=== PATIENT | male | born 1975 | race Caucasian/White ===

== ENCOUNTER 2019-05-26 09:40 | Emergency (ER) | payer MEDICAID ==
[~2019-05-26] VITALS: Ht 185.4 cm; Wt 136.1 kg
--- NOTE | 2019-05-26 10:09 | NUR ---
dr khan at bedside for eval.
[2019-05-26] MEDS ORDERED: HYDROCODONE/APAP 5/325MG TABLET ONE (10:29)
[2019-05-26 10:33] LABS: BASOPHILS % (AUTO) 0.4 % (0.0-2.0); EOSINOPHILS % (AUTO) 0.8 % (0.0-6.0); HEMATOCRIT 33 % (39-51); HEMOGLOBIN 10.6 g/dL (13.5-17.5); LYMPHOCYTES # (AUTO) 0.9 /CMM (0.8-4.8); MEAN CORPUSCULAR HGB CONC 32 g/dl (31.0-36.0); MEAN CORPUSCULAR VOLUME 89 fL (80-96); MONOCYTES # (AUTO) 0.3 /CMM (0.1-1.30); MONOCYTES % (AUTO) 6.6 % (2.0-12.0); NEUTROPHILS # (AUTO) 3.3 /CMM (1.8-8.9); NEUTROPHILS % (AUTO) 72.2 % (43.0-81.0); PLATELET COUNT (AUTO) 165 /CMM (150-450); RED BLOOD CELL COUNT(AUTO) 3.68 MIL/uL (4.5-6.0); WHITE BLOOD COUNT (AUTO) 4.6 K/uL (4.3-11.0)
[2019-05-26 10:40] LABS: CREATININE 0.9 mg/dL (0.6-1.3); POTASSIUM 3.7 mmol/L (3.5-5.1)
[2019-05-26 10:46] LABS: ALBUMIN 3.5 g/dL (3.4-5.0); BILIRUBIN,TOTAL 0.2 mg/dL (0.2-1.0); CALCIUM, SERUM 8.2 mg/dL (8.5-10.1)
[2019-05-26] MEDS ORDERED: HYDROCODONE/APAP 5/325MG TABLET PO ONE (11:00)
[2019-05-26] MEDS ORDERED: IOHEXOL-300 100 ML VIAL IV ONE (11:02)
--- NOTE | 2019-05-26 11:02 | NUR ---
pt to radiology for head, cervical, abdominal ct scan via wheelchair.
[2019-05-26] MEDS ORDERED: CT SWABBABLE VALVE TRANS SET 1 EA INFUS.SET MC ONE (11:03)
[2019-05-26] MEDS ORDERED: IV NS 0.9% 250 ML IV ONE (11:03)
--- NOTE | 2019-05-26 11:47 | NUR ---
still c/o neck and r side abdomen. dr khan aware.
--- NOTE | 2019-05-26 12:35 | NUR ---
pt states he lives w/ friends but nothing permanent. offered homeless referals and tap card for tranportation but declined.
--- NOTE | 2019-05-26 12:39 | NUR ---
Patient discharged to home in stable condition. Written and verbal after care instructions given. Patient verbalizes understanding of instruction.IV removed. Catheter intact and site benign. Pressure and 4x4 applied to site. No bleeding noted.
[2019-05-26 12:47] VITALS: BP 138/77
[2019-09-16] MEDS ORDERED: ONDA4TAB5 PO (12:02)
[2019-09-16] MEDS ORDERED: HYDR-4354 PO (12:02)
[2019-09-16] MEDS ORDERED: CYAN-51 PO (12:02)
[2019-09-16] MEDS ORDERED: RIVA10TA PO (12:02)
[2019-09-16] MEDS ORDERED: RIVA15TA PO (12:02)
[2019-09-16] MEDS ORDERED: AMOX-427 PO (12:02)
== END 2019-05-26 12:48 | disposition home or self-care (01) ==
LOC: ER 09:48
DX: S16.1XXA Strain of muscle, fascia and tendon at neck level, initial encounter (principal); S46.811A Strain of other muscles, fascia and tendons at shoulder and upper arm level, right arm, initial encounter; S30.1XXA Contusion of abdominal wall, initial encounter; I48.91 Unspecified atrial fibrillation; Z98.890 Other specified postprocedural states; Z88.6 Allergy status to analgesic agent; Z60.2 Problems related to living alone; V49.59XA Passenger injured in collision with other motor vehicles in traffic accident, initial encounter; Y93.89 Activity, other specified; Y92.413 State road as the place of occurrence of the external cause; Y99.8 Other external cause status
CPT/HCPCS: 36415; 70450; 71260; 72125; 74177; 80048; 80076; 85025; 85730; 86850; 99285; J7050; Q9967

== ENCOUNTER 2019-09-11 07:41 | Inpatient (IN) | payer MEDICAID ==
[~2019-09-11] VITALS: Ht 185.4 cm; Wt 120.2 kg
--- NOTE | 2019-09-11 07:41 | NUR ---
PT BIBRA 860 FROM HOME C/O ABDOMINAL PAIN STARTED THIS MORNING. PT IS AAOX4, NOT IN RESPIRATORY DISTRESS, V/S STABLE, KEPT RESTED AND COMFORTABLE. WILL CONTINUE TO MONITOR.
[2019-09-11] MEDS ORDERED: IV NS 0.9% 500 ML BAG IV ONE (08:00)
[2019-09-11] MEDS ORDERED: HYDROMORPHONE INJ 2 MG/ML DISP.SYRIN IV ONE (08:00)
[2019-09-11] MEDS ORDERED: ONDANSETRON HCL/PF 4 MG/2 ML VIAL IVP ONE (08:00)
--- NOTE | 2019-09-11 08:00 | NUR ---
SEEN AND EXAMINED BY .
[2019-09-11] MEDS ORDERED: HYDROMORPHONE 1 MG/1 ML DISP.SYRIN ONE ×2 (08:01→10:14)
[2019-09-11] MEDS ORDERED: ONDANSETRON HCL/PF 4 MG/2 ML VIAL ONE (08:01)
--- NOTE | 2019-09-11 08:10 | NUR ---
IV LINE ESTABLISHED BLOOD DRAWN AND SENT TO LAB.
[2019-09-11 08:19] LABS: BASOPHILS % (AUTO) 0.3 % (0.0-2.0); EOSINOPHILS % (AUTO) 0.3 % (0.0-6.0); HEMATOCRIT 32 % (39-51); HEMOGLOBIN 9.9 g/dL (13.5-17.5); LYMPHOCYTES # (AUTO) 1.1 /CMM (0.8-4.8); LYMPHOCYTES % (AUTO) 27.4 % (20.0-44.0); MEAN CORPUSCULAR HGB CONC 31 g/dl (31.0-36.0); MEAN CORPUSCULAR VOLUME 93 fL (80-96); MONOCYTES # (AUTO) 0.4 /CMM (0.1-1.30); MONOCYTES % (AUTO) 8.8 % (2.0-12.0); NEUTROPHILS # (AUTO) 2.6 /CMM (1.8-8.9); NEUTROPHILS % (AUTO) 63.2 % (43.0-81.0); PLATELET COUNT (AUTO) 103 /CMM (150-450); RED BLOOD CELL COUNT(AUTO) 3.48 MIL/uL (4.5-6.0); WHITE BLOOD COUNT (AUTO) 4.2 K/uL (4.3-11.0)
--- NOTE | 2019-09-11 08:30 | NUR ---
PT STATED HE IS NOT ALLERGIC TO DILAUDID AND MORPHINE.
[2019-09-11 09:00] LABS: CALCIUM, SERUM 8.9 mg/dL (8.5-10.1); CARBON DIOXIDE 22 mmol/L (21-32); CHLORIDE 102 mmol/L (98-107); CREATININE 0.9 mg/dL (0.6-1.3); GLUCOSE 93 mg/dL (74-106); POTASSIUM 4.6 mmol/L (3.5-5.1); SODIUM SERUM 137 mmol/L (136-145); UREA NITROGEN, BLOOD 12 mg/dL (7-18)
[2019-09-11 09:06] LABS: ALANINE AMINOTRANSFERASE 30 U/L (12-78); ALBUMIN 3.7 g/dL (3.4-5.0); ALKALINE PHOSPHATASE 86 U/L (46-116); ASPARTATE AMINOTRANSFERASE 42 U/L (15-37); BILIRUBIN,DIRECT 0.1 mg/dL (0.0-0.2); BILIRUBIN,TOTAL 0.5 mg/dL (0.2-1.0); LIPASE 70 U/L (73-393); TOTAL PROTEIN, SERUM 7.6 g/dL (6.4-8.2)
--- NOTE | 2019-09-11 10:08 | NUR ---
CALLED DR. BRET JEAN-BAPTISTE [phone]
--- NOTE | 2019-09-11 10:20 | NUR ---
COVID SWAB OBTAINED AND SENT TO LAB.
[2019-09-11] MEDS ORDERED: HYDROMORPHONE INJ 0.5 MG/0.5 ML SYRINGE IM ONE (10:30)
--- NOTE | 2019-09-11 10:36 | NUR ---
EPIC CALLED AND PAGED.
--- NOTE | 2019-09-11 11:02 | NUR ---
received a call from Lab for covid 19 result "negative", notified.
[2019-09-11] MEDS ORDERED: IV LR 500 ML IV PRN (11:30)
[2019-09-11] MEDS ORDERED: Z GUARD REMEDY 2 OZ OINT TP PRN (11:30)
[2019-09-11] MEDS ORDERED: ACETAMINOPHEN 325 MG TABLET PO PRN (11:30)
[2019-09-11] MEDS ORDERED: ONDANSETRON HCL/PF 4 MG/2 ML VIAL IVP PRN (11:30)
--- NOTE | 2019-09-11 11:38 | NUR ---
CALLED HOUSE SUP FOR MED SURG BED
--- NOTE | 2019-09-11 11:55 | NUR ---
REPORT GIVEN TO FERMIN SAMANIEGO FOR ZHEN.
[2019-09-11 12:05] LABS: APPEARANCE,URINE CLEAR (CLEAR); BILIRUBIN,URINE NEGATIVE (NEGATIVE); BLOOD, URINE NEGATIVE Ery/uL (NEGATIVE); COLOR,URINE YELLOW (YELLOW); KETONES,URINE NEGATIVE (NEGATIVE); LEUKOCYTE ESTERASE ,URINE NEGATIVE (NEGATIVE); NITRITE, URINE NEGATIVE (NEGATIVE); PROTEIN,URINE NEGATIVE (NEGATIVE); UGLUCOSE NEGATIVE (NEGATIVE); UROBILINOGEN,URINE 0.2 EU/dL (0.2)
--- NOTE | 2019-09-11 12:22 | NUR ---
RN ADMITTING NOTE Received report from Grayson CHRISTENSEN. Patient arrived onto unit, A/O x4, ambulated to bed, showing no signs of acute distress or SOB, saturating 100% on RA. BP 133/83 HR 57 T 99.2. Patient is 265 lbs. IV line in the right wrist #20g is clean and intact, flushing well. Skin assessed and skin remains intact. Patient is complaining of deep tenderness abdominal pain starting in LLQ and radiating throughout the abdomen. Bed is in lowest position, side rails x3 in upright position, call light is within reach, fall and safety precautions enforced. Will continue with admitting orders.
[2019-09-11 12:30] VITALS: BP 133/83
[2019-09-11] MEDS: PANTOPRAZOLE 40 MG VIAL IV SCH (13:00)
[2019-09-11] MEDS ORDERED: PIPERACILLIN /TAZOBACTAM 3.375 G in IV D5W 50 ML IV ONE (13:00)
[2019-09-11] MEDS: HYDROMORPHONE INJ 2 MG/ML DISP.SYRIN IV PRN ×3 (13:02→21:34)
[2019-09-11] MEDS ORDERED: TRAZ-257 PO (15:17)
[2019-09-11] MEDS ORDERED: FAMO40TA7 PO (15:17)
[2019-09-11] MEDS ORDERED: QUET50TA PO (15:17)
[2019-09-11] MEDS ORDERED: FLUO40CA8 PO (15:17)
[2019-09-11 16:00] VITALS: BP 117/66
--- NOTE | 2019-09-11 18:46 | NUR ---
RN CLOSING NOTE Patient is resting in bed, A/O x4, showing no sign of acute distress, stable on RA. IV line is clean and intact running LR @ 75mls/hour. Patient is able to ambulate to the bathroom independently. All patient needs met, all due medications given, patient kept clean and dry throughout the shift, fall safety precautions enforced. Will endorse to [facility] shift lead.
[2019-09-11 20:00] VITALS: BP_SYST 112; BP_SYST 142; BP_DIAS 68; BP_DIAS 74
[2019-09-11] MEDS: IV LR 1000 ML 1,000 ML IV PRN (20:20)
[2019-09-11] MEDS: PIPERACILLIN /TAZOBACTAM 3.375 G in IV D5W 100 ML IV SCH (20:21)
--- NOTE | 2019-09-12 00:40 | NUR ---
NGT READJUSTED ngt checked pt c/o feeling like tube is in back of throat. appears tube has slipped 3cm tape removed tube advanced to 68cm and retaped to right nostril .placement confirmed with auscultation tube draining red brown secrectioin small amoun and placed back on lis. Addendum: 09/12/19 at 0106 by MARYBETH RODRIGUEZ RN MESSAGE WRITTEN IN ERROR ENTERED ON WRONG PATIENT. PT HAS NOT NGT
[2019-09-12] MEDS: HYDROMORPHONE INJ 2 MG/ML DISP.SYRIN IV PRN ×7 (01:21→21:35)
[2019-09-12] MEDS: PIPERACILLIN /TAZOBACTAM 3.375 G in IV D5W 100 ML IV SCH ×3 (04:26→19:48)
[2019-09-12] MEDS: IV LR 1000 ML 1,000 ML IV PRN (05:36)
--- NOTE | 2019-09-12 07:30 | NUR ---
RN Opening Note Received patient in bed, AO x 3-4, able to responds all stimuli. C/o abd pain, pt had Dilaudid 1mg q4 prn, skin is warm to touch, clean/dry. Respiratory even and unlabored in room air, no distress observed. Bed in locked with elevated HOB for ensure airway and aspiration precaution. Call light within reach, will continue to monitor.
[2019-09-12 07:51] LABS: BASOPHILS % (AUTO) 0.4 % (0.0-2.0); EOSINOPHILS % (AUTO) 1.2 % (0.0-6.0); HEMATOCRIT 30 % (39-51); HEMOGLOBIN 9.8 g/dL (13.5-17.5); LYMPHOCYTES % (AUTO) 38.4 % (20.0-44.0); MEAN CORPUSCULAR HGB CONC 32 g/dl (31.0-36.0); MEAN CORPUSCULAR VOLUME 89 fL (80-96); MONOCYTES # (AUTO) 0.2 /CMM (0.1-1.30); MONOCYTES % (AUTO) 6.4 % (2.0-12.0); NEUTROPHILS # (AUTO) 1.4 /CMM (1.8-8.9); NEUTROPHILS % (AUTO) 53.6 % (43.0-81.0); PLATELET COUNT (AUTO) 88 /CMM (150-450); RED BLOOD CELL COUNT(AUTO) 3.42 MIL/uL (4.5-6.0); WHITE BLOOD COUNT (AUTO) 2.6 K/uL (4.3-11.0)
[2019-09-12 08:00] VITALS: BP 125/73
[2019-09-12 08:05] LABS: CALCIUM, SERUM 8.9 mg/dL (8.5-10.1); CREATININE 0.9 mg/dL (0.6-1.3); MAGNESIUM 1.9 mg/dL (1.8-2.4); PHOSPHORUS 3.5 mg/dL (2.5-4.9); POTASSIUM 3.8 mmol/L (3.5-5.1)
[2019-09-12] MEDS: PANTOPRAZOLE 40 MG VIAL IV SCH (08:28)
[2019-09-12 08:45] LABS: EOSINOPHILS % (MANUAL) 1 % (0-4); LYMPHOCYTES % (MANUAL) 40 % (16-48); MONOCYTES % (MANUAL) 6 % (0-11.0); NEUTROPHILS % (MANUAL) 53 (42-76)
--- NOTE | 2019-09-12 10:43 | NUR ---
Patient transferred room 203, given alanna Dickinson RN.
--- NOTE | 2019-09-12 10:45 | NUR ---
RN NOTES RECEIVED PATIENT FROM [facility]. REPORT GIVEN BEDSIDE FROM FERMIN GUADALUPE. NO SIGNS OF DISTRESS NOTED AT THIS TIME. A/O X4. ORIENTED TO ROOM, UNIT AND STAFF. SAFETY MEASURES IN PLACE, BED IN LOWEST LOCKED POSITION WITH SIDE RAILS UP X2. CALL LIGHT WITHIN EASY REACH. WILL CONTINUE TO MONITOR.
[2019-09-12 16:00] VITALS: BP 130/69
--- NOTE | 2019-09-12 18:52 | NUR ---
RN NOTES PATIENT IN BED RESTING COMFORTABLY IN MODERATE HIGH BACK REST. A/O X4. ON ROOM AIR, NO SIGNS OF DISTRESS NOTED THROUGHOUT THE SHIFT. IV FLUIDS ON LEFT FA#22 WITH LR RUNNING @75ML/HR, PATENT AND INTACT. SAFETY MEASURES IN PLACE, BED IN LOWEST LOCKED POSITION WITH SIDE RAILS UP X2. CALL LIGHT WITHIN EASY REACH. WILL ENDORSE TO LIBRARY CONSULTANT NURSE FOR ZHEN.
--- NOTE | 2019-09-12 20:17 | NUR ---
RECEIVED MR. KHAN IN BED ALERT AND ORIENTATED X4 SPEECH CLEAR WATCHING TV. WANTS TO KNOW WHEN HE CAN BE MEDIACATED FOR PAIN. LET HIM KNOW IT WAS [id number] NOT TIL 21:30. REQUESTED SOMETHING TO EAT CLEAR LIQ DIET JELLO GIVEN AND CONSUMED 100% NO N/V FOLLOWED
[2019-09-12 20:19] VITALS: BP 127/80
[2019-09-13] MEDS: HYDROMORPHONE INJ 2 MG/ML DISP.SYRIN IV PRN ×6 (01:31→21:25)
[2019-09-13] MEDS: PIPERACILLIN /TAZOBACTAM 3.375 G in IV D5W 100 ML IV SCH ×3 (04:07→19:41)
--- NOTE | 2019-09-13 06:06 | NUR ---
ENDING NOTES: AWAKE MOST OF THE NIGHT WATCHING TV. MEDICATED X3 THRU THE NIGHT q4 HOURS . TOLERATING CLEAR LIQUID NO NAUSEA NO VOMITING
[2019-09-13 06:58] LABS: BASOPHILS % (AUTO) 0.2 % (0.0-2.0); EOSINOPHILS % (AUTO) 1.1 % (0.0-6.0); HEMATOCRIT 31 % (39-51); HEMOGLOBIN 9.9 g/dL (13.5-17.5); LYMPHOCYTES % (AUTO) 34.8 % (20.0-44.0); MEAN CORPUSCULAR HGB CONC 32 g/dl (31.0-36.0); MEAN CORPUSCULAR VOLUME 89 fL (80-96); MONOCYTES # (AUTO) 0.2 /CMM (0.1-1.30); MONOCYTES % (AUTO) 7.9 % (2.0-12.0); NEUTROPHILS # (AUTO) 1.5 /CMM (1.8-8.9); PLATELET COUNT (AUTO) 89 /CMM (150-450); RED BLOOD CELL COUNT(AUTO) 3.47 MIL/uL (4.5-6.0); WHITE BLOOD COUNT (AUTO) 2.7 K/uL (4.3-11.0)
[2019-09-13 07:00] LABS: CALCIUM, SERUM 9.3 mg/dL (8.5-10.1); CREATININE 0.9 mg/dL (0.6-1.3); POTASSIUM 3.9 mmol/L (3.5-5.1)
--- NOTE | 2019-09-13 07:27 | NUR ---
RN NOTES RECEIVED PATIENT IN BED RESTING COMFORTABLY IN MODERATE HIGH BACK REST. A/O X4. ON ROOM AIR, NO SIGNS OF DISTRESS NOTED AT THIS TIME. IV FLUIDS ON LEFT FA#22 WITH LR RUNNING @75ML/HR, PATENT AND INTACT. SAFETY MEASURES IN PLACE, BED IN LOWEST LOCKED POSITION WITH SIDE RAILS UP X2. CALL LIGHT WITHIN EASY REACH. WILL CONTINUE TO MONITOR.
[2019-09-13 08:00] VITALS: BP 124/90
[2019-09-13] MEDS: PANTOPRAZOLE 40 MG VIAL IV SCH (08:24)
[2019-09-13] MEDS: IV LR 1000 ML 1,000 ML IV PRN (08:59)
[2019-09-13] MEDS: FLUOXETINE HCL 20 MG CAPSULE PO SCH (12:40)
[2019-09-13 13:11] LABS: BAND % (MANUAL) 2 % (0.0-5.0); EOSINOPHILS % (MANUAL) 1 % (0-4); LYMPHOCYTES % (MANUAL) 33 % (16-48); MONOCYTES % (MANUAL) 7 % (0-11.0); NEUTROPHILS % (MANUAL) 57 (42-76)
--- NOTE | 2019-09-13 13:24 | NUR ---
Social service consult requested by MD due to pt residing in transitional housing. Per MD notes, pt is a 43-year-old male patient who presented to the emergency department via EMS; he called the paramedics for worsening abdominal pain. The patient states that the pain started last week, he describes the pain as an aching pain that initiates around the umbilical area and gradually moves up to the epigastric region. On physical exam, the patient noted to be positive for McBurney's point tenderness and and Rovsing sign. Pt had a history of Bariatric surgery and lost 200lbs. STEEL INSPECTOR conducted chart review and contacted the pt via phone. STEEL INSPECTOR introduced self, explained the role of the SW and purpose of the call. Pt is alert and oriented x 4 with appropriate affect. Per pt, he resides in a transitional housing located at [address] [place] [address] in [place]. Pt has been residing there for the past 6 months and likes his living arrangement. Pt receives GR and Food stamps monthly. Pt is currently in process of appealing his denial for SSDI. Pt is independent with his ADLs and IADLs. Pt denies history of substance use/abuse. However, pt does smoke marijuana occasionally. Pt has a psychiatric diagnosis of PTSD, Bipolar and Major Depressive Disorder. Pt takes Prozac daily and is compliant with his medication. Pt denies suicidal and homicidal ideations and visual/auditory hallucinations. STEEL INSPECTOR provided pt with active listening, supportive counseling, emotional support, validation of feelings and positive coping skills. Pt. will require a TAP card upon discharge. Salesman/Owner is available for support upon discharge.
[2019-09-13 16:11] VITALS: BP 142/83
--- NOTE | 2019-09-13 18:31 | NUR ---
RN NOTES PATIENT IN BED RESTING COMFORTABLY IN MODERATE HIGH BACK REST. A/O X4. ON ROOM AIR, NO SIGNS OF DISTRESS NOTED THROUGHOUT THE SHIFT. IV FLUIDS ON LEFT FA#22 WITH LR RUNNING @75ML/HR, PATENT AND INTACT. NPO MIDNIGHT, SCHEDULE FOR EGD IN AM. SAFETY MEASURES IN PLACE, BED IN LOWEST LOCKED POSITION WITH SIDE RAILS UP X2. CALL LIGHT WITHIN EASY REACH. WILL ENDORSE TO ELECTRIC BATH ATTENDANT NURSE FOR ZHEN.
--- NOTE | 2019-09-13 19:05 | NUR ---
MS RN OPENING NOTES Received patient A/O x4, awake on bed watching TV. On RA, denies any discomfort at this time. IVF infusing well via peripheral IV line LFA #22 with LR @ 75ml/hr as ordered. Pt is ambulatory to bathroom with steady gait, independent in ADL. Kept on bed clean, dry and comfortable. Call light within easy reach. Will continue to monitor accordingly.
[2019-09-13 20:00] VITALS: BP 120/76
[2019-09-13] MEDS: QUETIAPINE FUMARATE 25 MG TABLET PO SCH (21:25)
[2019-09-13] MEDS: TRAZODONE 50 MG TABLET PO SCH (21:25)
[2019-09-13] MEDS ORDERED: Medication Not On Formulary EA (Quetiapine Fumarate (Seroquel) 50 MG) PO SCH (22:00)
[2019-09-14 00:22] LABS: THYROID STIMULATING HORMONE 0.789 uIU/mL (0.358-3.74)
[2019-09-14 00:25] LABS: C-REACTIVE PROTEIN 2.9 mg/dL (0.0-0.9)
[2019-09-14] MEDS: PIPERACILLIN /TAZOBACTAM 3.375 G in IV D5W 100 ML IV SCH ×3 (03:47→20:33)
--- NOTE | 2019-09-14 06:45 | NUR ---
MS RN CLOSING NOTES Pt asleep on bed, on RA. Medicated for pain, noted effective. Kept on NPO since midnight, pt is for EGD today. All nursing needs attended, due meds given as ordered. No new unusualities noted. Call light within easy reach. Endorsed.
--- NOTE | 2019-09-14 07:10 | NUR ---
MS RN NOTES PATIENT IN BED ALERT ORIENTED X 4. NO ACUTE DISTRESS NOTED. BREATHING UNLABORED. IV ACCESS PATENT AND INTACT, NO REDNESS, NO SWELLING NOTED. SAFETY MEASURES IN PLACE. CALL LIGHT WITHIN REACH. WILL CONTINUE TO MONITOR ACCORDINGLY.
[2019-09-14 07:13] LABS: CALCIUM, SERUM 8.8 mg/dL (8.5-10.1); CREATININE 0.9 mg/dL (0.6-1.3); POTASSIUM 3.8 mmol/L (3.5-5.1)
[2019-09-14 07:16] LABS: BASOPHILS % (AUTO) 0.3 % (0.0-2.0); EOSINOPHILS % (AUTO) 1.4 % (0.0-6.0); HEMATOCRIT 30 % (39-51); HEMOGLOBIN 9.5 g/dL (13.5-17.5); LYMPHOCYTES # (AUTO) 1.1 /CMM (0.8-4.8); LYMPHOCYTES % (AUTO) 44.9 % (20.0-44.0); MEAN CORPUSCULAR HGB CONC 32 g/dl (31.0-36.0); MEAN CORPUSCULAR VOLUME 89 fL (80-96); MONOCYTES # (AUTO) 0.2 /CMM (0.1-1.30); MONOCYTES % (AUTO) 8.4 % (2.0-12.0); NEUTROPHILS # (AUTO) 1.1 /CMM (1.8-8.9); PLATELET COUNT (AUTO) 96 /CMM (150-450); RED BLOOD CELL COUNT(AUTO) 3.38 MIL/uL (4.5-6.0); WHITE BLOOD COUNT (AUTO) 2.4 K/uL (4.3-11.0)
[2019-09-14 08:00] VITALS: BP 118/83
[2019-09-14 08:04] LABS: LYMPHOCYTES % (MANUAL) 42 % (16-48); MONOCYTES % (MANUAL) 6 % (0-11.0); NEUTROPHILS % (MANUAL) 52 (42-76)
[2019-09-14] MEDS: PANTOPRAZOLE 40 MG VIAL IV SCH (08:43)
[2019-09-14] MEDS: FOLIC ACID 1 MG TABLET PO SCH (09:00)
[2019-09-14] MEDS: FLUOXETINE HCL 20 MG CAPSULE PO SCH (09:00)
[2019-09-14] MEDS: IV LR 1000 ML 1,000 ML IV PRN (11:26)
--- NOTE | 2019-09-14 13:05 | NUR ---
MS RN NOTES PATIENT TRANSPORTED TO OPERATING ROOM IN STABLE CONDITION . ALERT ORIENTED X 4.
--- NOTE | 2019-09-14 13:05 | NUR ---
MS CHRISTENSEN NOTES PATIENT TRANSPORTED TO OPERATING ROOM IN STABLE CONDITION . ALERT ORIENTED X 34. Addendum: 09/14/19 at 1317 by PRASANNA STEELE RN DISREGARD ABOVE NOTE , ERROR
--- NOTE | 2019-09-14 14:40 | NUR ---
MS RN NOTES PATIENT CAME BACK FROM OPERATING ROOM IN STABLE CONDITION, VITAL SIGNS STABLE. WITH NEW ORDERS FROM DR IRIZARRY TO RESUME ORDERS AND PREVIOUS DIET, NOTED AND CARRIED OUT. PATIENT ALERT ORIENTED X 4. NO ACUTE DISTRESS NOTED. WILL CONTINUE TO MONITOR.
[2019-09-14] MEDS: SOD FERRIC GLUC 125 MG in IV NS 0.9% 100 ML IV SCH (15:10)
--- NOTE | 2019-09-14 16:00 | NUR ---
MS RN NOTES NOTIFIED WEB APPLICATIONS ADMINISTRATOR RYLIE PABLO EGD DONE.
[2019-09-14] MEDS: HYDROMORPHONE INJ 2 MG/ML DISP.SYRIN IV PRN ×2 (18:26→21:24)
--- NOTE | 2019-09-14 18:26 | NUR ---
MS RN NOTES PATIENT COMPLAINT OF ABDOMINAL PAIN 9/, DILAUDID GIVEN ORDERED. VITAL SIGNS STABLE.
[2019-09-14 18:39] VITALS: BP 119/80
--- NOTE | 2019-09-14 19:00 | NUR ---
MS RN NOTES PATIENT IN BED ALERT ORIENTED X 4. NO ACUTE DISTRESS NOTED. BREATHING UNLABORED. VITAL SIGNS STABLE THROUGH OUT THE SHIFT.IV ACCESS PATENT AND INTACT, NO REDNESS, NO SWELLING NOTED. NEEDS ATTENDED AND ANTICIPATED. KEPT COMFORTABLE. HEAD OF BED ELEVATED. SAFETY MEASURES IN PLACE. CALL LIGHT WITHIN REACH. WILL ENDORSE TO NIGHT FOR CONTINUITY OF CARE
[2019-09-14 20:00] VITALS: BP 133/77
[2019-09-14] MEDS: QUETIAPINE FUMARATE 25 MG TABLET PO SCH (21:23)
[2019-09-14] MEDS: TRAZODONE 50 MG TABLET PO SCH (21:23)
[2019-09-15] MEDS: HYDROMORPHONE INJ 2 MG/ML DISP.SYRIN IV PRN ×7 (00:28→23:05)
[2019-09-15] MEDS: PIPERACILLIN /TAZOBACTAM 3.375 G in IV D5W 100 ML IV SCH ×3 (03:38→20:19)
[2019-09-15 06:30] LABS: CALCIUM, SERUM 8.8 mg/dL (8.5-10.1); CREATININE 0.9 mg/dL (0.6-1.3); POTASSIUM 3.5 mmol/L (3.5-5.1)
[2019-09-15 06:32] LABS: BASOPHILS % (AUTO) 0.3 % (0.0-2.0); EOSINOPHILS % (AUTO) 1.1 % (0.0-6.0); HEMATOCRIT 31 % (39-51); HEMOGLOBIN 9.8 g/dL (13.5-17.5); LYMPHOCYTES # (AUTO) 0.9 /CMM (0.8-4.8); LYMPHOCYTES % (AUTO) 39.5 % (20.0-44.0); MEAN CORPUSCULAR HGB CONC 32 g/dl (31.0-36.0); MEAN CORPUSCULAR VOLUME 89 fL (80-96); MONOCYTES # (AUTO) 0.2 /CMM (0.1-1.30); NEUTROPHILS # (AUTO) 1.2 /CMM (1.8-8.9); NEUTROPHILS % (AUTO) 52.1 % (43.0-81.0); PLATELET COUNT (AUTO) 93 /CMM (150-450); RED BLOOD CELL COUNT(AUTO) 3.45 MIL/uL (4.5-6.0); WHITE BLOOD COUNT (AUTO) 2.4 K/uL (4.3-11.0)
--- NOTE | 2019-09-15 06:44 | NUR ---
MS RN NOTES AWAKE & RESPONSIVE. NOT IN ANY DISTRESS. NO SOB NOTED. DENIES ANY PAIN OR DISCOMFORT AT THIS TIME. WITH IVF INFUSING WELL. MONITORED ACCORDINGLY. CALL LIGHT WITHIN REACH. BED IN LOWEST POSITION. SR UP X 2 FOR SAFETY. WILL ENDORSE TO NEXT SHIFT.
[2019-09-15 08:00] VITALS: BP 152/75
[2019-09-15] MEDS: PANTOPRAZOLE 40 MG VIAL IV SCH (08:09)
[2019-09-15] MEDS: FLUOXETINE HCL 20 MG CAPSULE PO SCH (08:09)
[2019-09-15] MEDS: FOLIC ACID 1 MG TABLET PO SCH (08:09)
--- NOTE | 2019-09-15 08:30 | NUR ---
MS RN NOTES PATIENT SEEN AND EVALUATED BY RYLIE PABLO SALES CLERK , MENTION ABOUT PATIENT NO ANTICOAGULANT ORDER YET , SALES CLERK STILL HAVE TO CHECK, NO NEW ORDERS MADE AT THIS TIME.
--- NOTE | 2019-09-15 14:40 | NUR ---
MS RN NOTES CALLED PHARMACY TO FOLLOW UP MICHAEL RODNEY SAID WILL BRING MEDICATION, WILL ADMINISTER ONCE AVAILABLE.
--- NOTE | 2019-09-15 15:30 | NUR ---
MS RN NOTES CALLED PHARMACY TO FOLLOW UP FERRLECIT NOT AVAILABLE YET ON THE FLOOR ,JONES LUIS SAID WILL BRING MEDICATION, WILL ADMINISTER ONCE AVAILABLE.
[2019-09-15] MEDS: SOD FERRIC GLUC 125 MG in IV NS 0.9% 100 ML IV SCH (16:25)
[2019-09-15] MEDS: RIVAROXABAN 15 MG TABLET PO SCH (16:25)
[2019-09-15 17:07] LABS: *ANA ANTI-CENTROMERE B AB <0.2 AI (0.0-0.9); *ANA ANTI-DNA(DS) AB, QN <1 IU/mL (0-9); *ANA ANTI-JO-1 <0.2 AI (0.0-0.9); *ANA ANTICHROMATIN ANTIBODY <0.2 AI (0.0-0.9); *ANA RNP ANTIBODIES <0.2 AI (0.0-0.9); *ANA SJOGREN'S ANTI-SS-A <0.2 AI (0.0-0.9); *ANA SJOGREN'S ANTI-SS-B <0.2 AI (0.0-0.9); *ANAANTI-SCLERODERMA-70 AB <0.2 AI (0.0-0.9); *ANASMITH AB <0.2 AI (0.0-0.9)
[2019-09-15] MEDS: CYANOCOBALAMIN 1,000 MCG/ML VIAL IM SCH (17:36)
[2019-09-15 18:03] VITALS: BP 141/84
--- NOTE | 2019-09-15 18:37 | NUR ---
MS RN NOTES PATIENT IN BED ALERT ORIENTED X 4. NO ACUTE DISTRESS NOTED. BREATHING UNLABORED. DENIED PAIN AT THIS TIME. IV ACCESS PATENT AND INTACT, NO REDNESS, NO SWELLING NOTED. NEEDS ATTENDED AND ANTICIPATED. KEPT COMFORTABLE. HEAD OF BED ELEVATED. SAFETY MEASURES IN PLACE. CALL LIGHT WITHIN REACH. WILL ENDORSE TO NIGHT FOR CONTINUITY OF CARE
[2019-09-15 20:00] VITALS: BP 132/82
[2019-09-15] MEDS: TRAZODONE 50 MG TABLET PO SCH (21:40)
[2019-09-15] MEDS: QUETIAPINE FUMARATE 25 MG TABLET PO SCH (21:40)
[2019-09-16] MEDS: IV LR 1000 ML 1,000 ML IV PRN (01:40)
[2019-09-16] MEDS: HYDROMORPHONE INJ 2 MG/ML DISP.SYRIN IV PRN ×3 (01:58→10:04)
[2019-09-16] MEDS: PIPERACILLIN /TAZOBACTAM 3.375 G in IV D5W 100 ML IV SCH ×2 (04:32→12:36)
[2019-09-16 06:43] LABS: CREATININE 0.9 mg/dL (0.6-1.3); POTASSIUM 4.1 mmol/L (3.5-5.1)
[2019-09-16 06:49] LABS: BASOPHILS % (AUTO) 0.5 % (0.0-2.0); EOSINOPHILS % (AUTO) 1.1 % (0.0-6.0); HEMATOCRIT 30 % (39-51); HEMOGLOBIN 9.5 g/dL (13.5-17.5); LYMPHOCYTES # (AUTO) 1.1 /CMM (0.8-4.8); MEAN CORPUSCULAR HGB CONC 32 g/dl (31.0-36.0); MEAN CORPUSCULAR VOLUME 89 fL (80-96); MONOCYTES # (AUTO) 0.2 /CMM (0.1-1.30); NEUTROPHILS # (AUTO) 1.2 /CMM (1.8-8.9); NEUTROPHILS % (AUTO) 45.4 % (43.0-81.0); PLATELET COUNT (AUTO) 85 /CMM (150-450); RED BLOOD CELL COUNT(AUTO) 3.33 MIL/uL (4.5-6.0); WHITE BLOOD COUNT (AUTO) 2.6 K/uL (4.3-11.0)
--- NOTE | 2019-09-16 07:10 | NUR ---
MS RN NOTES PATIENT IN BED ALERT ORIENTED X 4. NO ACUTE DISTRESS NOTED. BREATHING UNLABORED.DENIED PAIN AT THIS TIME, NO FACIAL GRIMACING NOTED. IV ACCESS PATENT AND INTACT, NO REDNESS, NO SWELLING NOTED. SAFETY MEASURES IN PLACE. CALL LIGHT WITHIN REACH. WILL CONTINUE TO MONITOR ACCORDINGLY.
[2019-09-16 08:00] VITALS: BP 128/79
[2019-09-16 09:17] LABS: EOSINOPHILS % (MANUAL) 1 % (0-4); LYMPHOCYTES % (MANUAL) 39 % (16-48); MONOCYTES % (MANUAL) 10 % (0-11.0); NEUTROPHILS % (MANUAL) 50 (42-76)
[2019-09-16] MEDS: PANTOPRAZOLE 40 MG VIAL IV SCH (09:51)
[2019-09-16] MEDS: CYANOCOBALAMIN 1,000 MCG/ML VIAL IM SCH (09:51)
[2019-09-16] MEDS: FLUOXETINE HCL 20 MG CAPSULE PO SCH (09:51)
[2019-09-16] MEDS: FOLIC ACID 1 MG TABLET PO SCH (09:51)
[2019-09-16] MEDS: RIVAROXABAN 15 MG TABLET PO SCH (09:56)
[2019-09-16] MEDS ORDERED: RIVA10TA PO (12:02)
[2019-09-16] MEDS ORDERED: HYDR-4354 PO (12:02)
[2019-09-16] MEDS ORDERED: AMOX-427 PO (12:02)
[2019-09-16] MEDS ORDERED: CYAN-51 PO (12:02)
[2019-09-16] MEDS ORDERED: RIVA15TA PO (12:02)
[2019-09-16] MEDS ORDERED: ONDA4TAB5 PO (12:02)
--- NOTE | 2019-09-16 12:11 | NUR ---
MS RN NOTES PATIENT SEEN AND EVALUATED BY JOSE HAAS COMMANDING OFFICER GARAGE WITH NEW ORDER TO DISCONTINUE CLEAR LIQUID DIET CHANGE TO REGULAR DIET, ORDER CLARIFIED AND READ BACK TO COMMANDING OFFICER GARAGE, NOTED AND CARRIED OUT.
--- NOTE | 2019-09-16 13:12 | NUR ---
MS RN NOTES RECEIVED NEW ORDER FROM RYLIE PABLO TREATING AND PUMPING SUPERVISOR TO DISCONTINUE DILAUDID , ORDER CLARIFIED AND READBACK WITH TREATING AND PUMPING SUPERVISOR, NOTED AND CARRIED OUT.
[2019-09-16] MEDS: SOD FERRIC GLUC 125 MG in IV NS 0.9% 100 ML IV SCH (14:00)
--- NOTE | 2019-09-16 15:00 | NUR ---
MS QUOTATION CHECKER NOTES PATIENT DISCHARGE HOME WITH STABLE VITAL SIGNS, ALERT ORIENTED X 4. NO ACUTE DISTRESS NOTED. BREATHING UNLABORED. DENIED ANY PAIN, NO FACIAL GRIMACING NOTED. DISCHARGE INSTRUCTIONS GIVEN TO THE PATIENT INCLUDING FOLLOW UP WITH PRIMARY DOCTOR, FOLLOW UP WITH HEMATOLOGY, FOLLOW UP WITH PRIMARY BARIATRIC SURGEON WITHIN ONE WEEK AND NEW PRESCRIPTIONS, VERBALIZED UNDERSTANDING. ALL BELONGINGS ACCOUNTED FOR. IV ACCESS REMOVED, NO REDNESS, NO SWELLING, NO BLEEDING NOTED. ALL BELONGINGS ACCOUNTED FOR. ASSISTED TO THE LOBBY , PATIENT AMBULATORY WITH STEADY GAIT. PICKED UP VIA PRIVATE CAR IN STABLE CONDITION.
== END 2019-09-16 15:00 | disposition home or self-care (01) | DRG 254 ==
LOC: ER 07:46 → MED 11:51 → CSC2 09-12 09:57 → MEDSG2 09-12 10:41
PROVIDERS: ADMIT Nurse Practitioner Acute Care; ATTEND Nurse Practitioner Acute Care
PROC: 0DJ08ZZ Inspection of Upper Intestinal Tract, Via Natural or Artificial Opening Endoscopic (ICD-10-PCS; principal; 2019-09-14)
DX: K37 Unspecified appendicitis (principal); F32.9 Major depressive disorder, single episode, unspecified; G47.00 Insomnia, unspecified; I48.91 Unspecified atrial fibrillation; G47.33 Obstructive sleep apnea (adult) (pediatric); D61.818 Other pancytopenia; I82.412 Acute embolism and thrombosis of left femoral vein; K29.70 Gastritis, unspecified, without bleeding; I10 Essential (primary) hypertension; K42.9 Umbilical hernia without obstruction or gangrene; Z79.01 Long term (current) use of anticoagulants; Z86.711 Personal history of pulmonary embolism; Z86.718 Personal history of other venous thrombosis and embolism; Z90.3 Acquired absence of stomach [part of]; Z98.84 Bariatric surgery status; F43.10 Post-traumatic stress disorder, unspecified; G89.29 Other chronic pain; K21.9 Gastro-esophageal reflux disease without esophagitis; Z88.8 Allergy status to other drugs, medicaments and biological substances; Z79.899 Other long term (current) drug therapy; E66.9 Obesity, unspecified; Y90.9 Presence of alcohol in blood, level not specified; Z68.39 Body mass index [BMI] 39.0-39.9, adult; K40.90 Unilateral inguinal hernia, without obstruction or gangrene, not specified as recurrent; K44.9 Diaphragmatic hernia without obstruction or gangrene; X58.XXXA Exposure to other specified factors, initial encounter; F10.11 Alcohol abuse, in remission; F12.90 Cannabis use, unspecified, uncomplicated; E55.9 Vitamin D deficiency, unspecified; E53.8 Deficiency of other specified B group vitamins; D72.819 Decreased white blood cell count, unspecified
CPT/HCPCS: 36415; 71045-TC; 80048-TC; 80061-TC; 80076-TC; 81000-TC; 82728-TC; 83540-TC; 83615-TC; 83690-TC; 83735-TC; 84100-TC; 84443-TC; 84484-TC; 85025-TC; 85045-TC; 86140-TC; 86225; 86235; 86431-TC; 86706; 86803; 87040-TC; 87081-TC; 87340; 87806; 93307-TC; 93970-TC; C9113; G0378; J1170; J2405; J2543; J2916; J3420; J3490; J7030; J7040; J7060; J7120

== ENCOUNTER 2023-03-07 09:04 | Emergency (ER) | payer MEDICAID, OTHER ==
[~2023-03-07] VITALS: Ht 185.4 cm; Wt 67.1 kg
[~2023-03-07 09:04] MED LIST: AMOX-427 PO; CYAN-51 PO; FAMO40TA7 PO; FLUO40CA8 PO; HYDR-4354 PO; ONDA4TAB5 PO; QUET50TA PO; RIVA10TA PO; RIVA15TA PO; TRAZ-257 PO
[2023-03-07] MEDS ORDERED: ONDANSETRON HCL/PF 4 MG/2 ML VIAL ONE (10:51)
[2023-03-07] MEDS ORDERED: MORPHINE SULFATE INJ 4 MG/ML DISP.SYRIN ONE (10:52)
[2023-03-07] MEDS ORDERED: MORPHINE SULFATE INJ 2 MG/ML DISP.SYRIN IV ONE (11:00)
[2023-03-07] MEDS ORDERED: ONDANSETRON HCL/PF 4 MG/2 ML VIAL IV ONE (11:00)
[2023-03-07] MEDS ORDERED: METH4TAB17 PO (11:50)
[2023-03-07] MEDS ORDERED: CYCL5TAB PO (11:50)
[2023-03-07] MEDS ORDERED: LIDO30AD10 TP (11:50)
[2023-03-07] MEDS ORDERED: HYDR-4303 PO (11:50)
[2023-03-07 12:08] VITALS: BP 128/70; TEMP 97.9; O2SAT 100
== END 2023-03-07 12:12 | disposition home or self-care (01) ==
LOC: ER 09:11
DX: S09.90XA Unspecified injury of head, initial encounter (principal); M54.42 Lumbago with sciatica, left side; I48.91 Unspecified atrial fibrillation; Z88.6 Allergy status to analgesic agent; Z88.8 Allergy status to other drugs, medicaments and biological substances; Z60.2 Problems related to living alone; W18.30XA Fall on same level, unspecified, initial encounter; Y93.89 Activity, other specified; Y92.89 Other specified places as the place of occurrence of the external cause; Y99.8 Other external cause status
CPT/HCPCS: 99285; 70450; 96374; 96375; 72131; J2270; J2405

== ENCOUNTER 2023-03-22 07:40 | Emergency (ER) | payer OTHER ==
[~2023-03-22] VITALS: Ht 185.4 cm; Wt 102.1 kg
[~2023-03-22 07:40] MED LIST changes: +CYCL5TAB PO; +HYDR-4303 PO; +LIDO30AD10 TP; +METH4TAB17 PO
[2023-03-22 07:42] VITALS: BP 142/78; TEMP 98.7; O2SAT 100
[2023-03-22] MEDS ORDERED: CYCL5TAB PO (08:59)
[2023-03-22] MEDS ORDERED: ACETAMINOPHEN ES 500 MG TABLET PO ONE (09:00)
[2023-03-22] MEDS ORDERED: CYCLOBENZAPRINE 10 MG TABLET PO ONE (09:00)
[2023-03-22] MEDS ORDERED: ACETAMINOPHEN ES 500 MG TABLET ONE (09:12)
[2023-03-22] MEDS ORDERED: CYCLOBENZAPRINE 10 MG TABLET ONE (09:13)
== END 2023-03-22 09:23 | disposition home or self-care (01) ==
LOC: ER 07:43
DX: M54.2 Cervicalgia (principal); I48.91 Unspecified atrial fibrillation; Z79.899 Other long term (current) drug therapy; Z60.2 Problems related to living alone; Z88.1 Allergy status to other antibiotic agents; Z88.5 Allergy status to narcotic agent